=== PATIENT | male | born 1985 | race Caucasian/White ===

== ENCOUNTER 2024-03-06 04:25 | Day surgery (SDC) | payer OTHER ==
[2024-03-04 09:07] VITALS: BMI 21.4
[2024-03-06 10:46] VITALS: TEMP 97.8
[2024-03-06 12:19] VITALS: RESP 17
[2024-03-06 12:22] VITALS: BP 134/87; PULSE 73
== END 2024-03-06 12:20 | disposition home or self-care (01) ==
LOC: JASU-ENDO 04:25
PROVIDERS: ATTEND Internal Medicine Gastroenterology
PROC: 0DB78ZX Excision of Stomach, Pylorus, Via Natural or Artificial Opening Endoscopic, Diagnostic (ICD-10-PCS; 2024-03-06)
PROC: 0DB68ZX Excision of Stomach, Via Natural or Artificial Opening Endoscopic, Diagnostic (ICD-10-PCS; principal; 2024-03-06 10:45)
DX: K29.50 Unspecified chronic gastritis without bleeding (principal)
CPT/HCPCS: 88305-TC; 88342-TC